=== PATIENT | male | born 1950 | race Caucasian/White ===

== ENCOUNTER 2017-03-11 09:07 | Inpatient (IN) ==
[2017-03-11] MEDS ORDERED: ZOFRAN IV ONE (09:24)
[2017-03-11] MEDS ORDERED: DILAUDID IV ONE ×2 (09:24→11:27)
--- NOTE | 2017-03-11 09:30 | PROVIDER DOCUMENTATION ---
HPI-General Adult - General Chief Complaint: Fall Stated Complaint: fall Time Seen by Provider: 03/11/17 09:14 Source: patient, EMS Allergies/Adverse Reactions: Patient Allergies Allergy/AdvReac Type Severity Reaction Status Date / Time cephalexin monohydrate * Allergy Unknown Verified 03/11/17 09:35 [From Keflex] Home Medications: Home Medication List Medication Instructions Recorded Confirmed Last Taken Type Alprazolam [Xanax] 1 mg PO TID 03/11/17 03/11/17 03/10/17 History Bumetanide [Bumex] 2 mg PO BID 03/11/17 03/11/17 03/10/17 History Ezetimibe [Zetia] 10 mg PO QHS 03/11/17 03/11/17 03/10/17 History Folic Acid 1 mg PO DAILY 03/11/17 03/11/17 03/10/17 History Lactulose [Lactulose] 15 mg PO TID 03/11/17 03/11/17 03/10/17 History Nadolol 20 mg PO DAILY 03/11/17 03/11/17 03/10/17 History Nitroglycerin 0.4 mg SL PRN PRN 03/11/17 03/11/17 03/10/17 History Potassium 20 mg PO TID 03/11/17 03/11/17 03/10/17 History Ranitidine HCl [Zantac 75] 150 mg PO BID 03/11/17 03/11/17 03/10/17 History - History of Present Illness -Gen Adult Nature of Presenting Problems: Pt is a 66 y/o W male c chief complaint of R thigh pain radiating to his R knee after he fell in the shower last night. Pt states his son came over to the house and assisted him to bed but he was unable to sleep all night due to the severe pain in his R leg. Pt has been unable to walk on the leg. He denies LOC or head injury c the fall, however his speech is slurred and he is slow to respond on arrival. Pt has a h/o liver failure, CHF, COPD, and HTN. He also has a h/o orthopedic surgery to his R femur and states after the surgery his R leg was shorter than his left leg. He was brought to the hospital by EMS. Review of Systems - Adult - REVIEW OF SYSTEMS - ADULT Constitutional: reports: no symptoms reported. denies: chills, fatique Eyes: reports: no symptoms reported. denies: discharge, blurred vision, double vision Ears, Nose, Mouth & Throat: reports: no symptoms reported. denies: hearing loss , nose pain Cardiovascular: reports: no symptoms reported. denies: chest pain, orthopnea Respiratory: reports: no symptoms reported. denies: cough, shortness of breath Gastrointestinal: reports: no symptoms reported. denies: abdominal pain, nausea Genitourinary: reports: no symptoms reported. denies: dysuria, hematuria Musculoskeletal: reports: bone pain, joint pain, joint swelling Integumentary: reports: no symptoms reported. denies: itching, rash Neurological: reports: no symptoms reported. denies: numbness, paresthesia Psychiatric: reports: no symptoms reported. denies: anxiety, emotional problems Endocrine: reports: no symptoms reported. denies: cold intolerance, heat intolerance Hematologic/Lymphatic: reports: no symptoms reported. denies: blood clots, low blood count Allergic/Immunologic: reports: no symptoms reported. denies: allergic reactions , food allergy All Other Systems: Reviewed and Negative Past History - Adult - PAST MEDICAL HISTORY-ADULT Review of Records: reports: Old Records Reviewed, Nursing Assessment Review, Medications Reviewed, Social history reviewed & non-contributory. Major Childhood Illnesses: reports: denies history Cardiovascular: reports: CAD, CHF, HTN, hyperlipidemia, PVD Respiratory: reports: COPD Gastrointestinal: reports: liver disease Obstetrical/Gynecological: reports: denies history Genitourinary: reports: denies history Musculoskeletal: reports: chronic pain, other fractures, orthopedic injury Neurological: reports: denies history Endocrine/Immune: reports: denies history Other Conditions: reports: denies history - IMMUNIZATION STATUS Childhood Immunizations: See Nurse Assessment Flu Vaccine: See Nurse Assessment - FAMILY HISTORY Family History: reviewed, not pertinent - SOCIAL HISTORY Smoking: denies Substance Use: none/never Alcohol Use Frequency: never Living Situation: family Physical Exam-General - PHYSICAL EXAM-ADULT Initial Vital Signs Reviewed: Yes - CONSTITUTIONAL General Appearance: mild distress, obese, slow to respond - EYES Eyes: PERRL/EOMI, pink conjunctivae - HEAD, EARS, NOSE, MOUTH & THROAT HENMT: normocephalic/atraumatic, moist mucous membranes, normal ENT inspection - NECK Neck: normal inspection - RESPIRATORY Respiratory: chest non-tender, no pleuratic chest pain, no respiratory distress , no accessory muscle use, wheezing (mild bilat). negative: respiratory distress, decreased breath sounds, decreased rate, increased rate - CARDIOVASCULAR Cardiovascular: normal peripheral pulses, regular rate, rhythm - GASTROINTESTINAL (ABDOMEN) Abdominal Exam: normal bowel sounds, non tender, soft - LYMPHATIC Lymphatic: no adenopathy - MUSCULOSKELETAL Back Exam: normal inspection, no CVA tenderness, no vertebral tenderness Extremity: tenderness (tenderness to palpation of R midshaft thigh and entire knee) - SKIN Integumentary: normal color, normal turgor, warm/dry - NEUROLOGIC Neurologic: grossly normal, no motor/sensory deficits - PSYCHIATRIC Psych/Mental Status: normal mood/affect, normal thought content, normal thought process, oriented x 3 Progress - PLAN OF CARE/RESULTS Progress/Plan/Lab Results: Vital Signs - 8 hr 03/11/17 09:13 Temperature 98.3 F Pulse Rate 77 Respiratory Rate 22 Blood Pressure 141/84 O2 Sat by Pulse Oximetry 95 Orders Category Date Time Status Saline Loc NOW Care 03/11/17 09:21 Active CHEST-PORTABLE [RAD] Stat Exams 03/11/17 09:21 Ordered FEMUR MIN 2 VIEWS RIGHT [RAD] Stat Exams 03/11/17 09:22 Ordered HEAD W/O CONTRAST [CT] Stat Exams 03/11/17 09:22 Ordered KNEE 3 VIEWS RIGHT [RAD] Stat Exams 03/11/17 09:22 Ordered XRAY HIP UNILATERAL RT [RAD] Stat Exams 03/11/17 09:22 Ordered ALCOHOL BLOOD Stat Lab 03/11/17 09:21 Uncollected AMMONIA [CHEM] Stat Lab 03/11/17 09:23 Uncollected CBC WITH ELECTRONIC DIFF [HEME] Stat Lab 03/11/17 09:21 Uncollected CK PROFILE [SP CHEM] Stat Lab 03/11/17 09:21 Uncollected COMPREHENSIVE METABOLIC PANEL [CHEM] Stat Lab 03/11/17 09:21 Uncollected PROTIME WITH INR [COAG] Stat Lab 03/11/17 09:21 Uncollected PTT [COAG] Stat Lab 03/11/17 09:21 Uncollected TROPONIN T Stat Lab 03/11/17 09:21 Uncollected URINALYSIS W/POSS RFLX CULT-1 [URINALYSIS] Stat Lab 03/11/17 09:21 Uncollected URINE DRUG SCREEN Stat Lab 03/11/17 09:21 Uncollected Hydromorphone [Dilaudid] Med 03/11/17 09:24 Once 1 mg IV NOW ONE Ondansetron [Zofran] Med 03/11/17 09:24 Once 4 mg IV NOW ONE Pulse Oximetry Stat Oth 03/11/17 09:21 Active EKG [EKG] Stat Ther 03/11/17 09:21 Ordered Result Diagrams: 03/11/17 09:21 03/11/17 09:21 - REASSESSMENT Reassessment #1 Time Reassessed: 13:27 (Contacted Dr. Leon c results from Dr. Sapp on CT knee. He would like the CT transferred into the [facility] system so he can access them and determine if the fx extends into the joint space. ) Reassessment #2 Time Reassessed: 14:08 (Dr. Leon reviewed CT scan and called back. He stated that he believes this is an osteochondroma that has broke off from the medial condyle of the femur. He recommends immobilization and non-weight bearing until pt can be seen in clinic. I discussed the plan of care c pt and his daughter at bedside. Pt is concerned because he has significant balance issues and no support at home. Daughter stated that the pt lives at home c his elderly sick and she is concerned he will fall if using crutches. Discussed c Dr. Julien ( ER MD) who recommended admitting pt to the Hospitalist for pain management c plan to have ortho see pt in morning. Pt and family agree c this plan. ) Reassessment #3 Time Reassessed: 14:19 (Hospitalist ANTONIO called back. She will relay message to Dr. Rubalcava (Hospitalist)) - XRAY 1 XRAY: Right XRAY Study: Pelvis, Femur, Knee Impression: Abnormal (PROBABLE ACUTE FX OF MEDIAL MARGIN OF MEDIAL FEMORAL CONDYLE - DR. SAPP) - CT/MRI 1 CT Study: Head Impression: Abnormal (NO EVIDENCE OF INJURY; R MASTOID EFFUSION NOTED - DR. SAPP) - CONSULTS/PCP/HOSPITALIST Notification #1 *Consult/PCP/Hospitalist*: Dr. Shaun Leon (Ortho) Time Discussed: 11:33 (Requested CT scan of knee to further evluate the atypical fx) #2 Consult: Dr. Rubalcava (Hospitalist) Time Discussed: 14:30 Reason/Comments: will admit and write orders. Departure - Departure Time of Disposition Decision: 11:03 DIAGNOSIS: Hyponatremia, Increased ammonia level Femoral condyle fracture Qualifiers: Encounter type: initial encounter Fracture type: closed Fracture alignment: nondisplaced Laterality: right Qualified Code(s): S72.414A - Nondisplaced unspecified condyle fracture of lower end of right femur, initial encounter for closed fracture Disposition: ADMITTED INPATIENT 09 Certified Medical Emergency: Emergent Condition: Stable Referrals and Follow-Ups: Alex Stuart [Primary Care Provider] - - Critical Care Note This patient required my direct & personal management of CC.: No Attestation - Physician/ LUCI Attestation Patient care was provided by Advanced Practice Provider:: Yes Advanced Practice Provider:: Gaetano Rios Advanced Practice Provider documentation review:: The Mid-level provider documentation, treatment plan and medical decision making was reviewed by the physician who agrees with all treatment and medical decision making by the MLP.
[2017-03-11 09:31] LABS: MANUAL DIFF NEEDED? NO
[2017-03-11 09:46] LABS: INR 1.15; PROTIME 12.2 Seconds (9.2-11.7); PTT 29.7 Seconds (22.0-36.0)
[2017-03-11 09:57] LABS: AGAP 10; ALBUMIN 3.1 g/dL (3.5-5.0); ALKALINE PHOSPHATASE 107 U/L (32-122); BUN 7 mg/dL (8-22); CALCIUM 8.7 mg/dL (8.8-10.2); CHLORIDE 91 mmol/L (98-107); CK PROFILE 102 U/L (24-204); COSMO 261; GOT 20 U/L (10-34); GPT 9 U/L (10-44); POTASSIUM 3.2 mmol/L (3.5-5.1); SODIUM 130 mmol/L (136-145); TCO2 29 mmol/L (25-35); TOTAL BILIRUBIN 2.34 mg/dL (0.20-1.00); TOTAL PROTEIN 7.9 g/dL (6.3-8.3)
--- NOTE | 2017-03-11 09:59 | ED EKG INTERP ---
This chart was entered by Ghanshyam Kearney Scribe, acting as scribe for Nishant Julien MD. EKG Interpretation - EKG Time of EKG reading by physician:: 09:12 EKG Read and Signed by:: Nishant Julien Rate: 77 Rhythm: NSR QRS: normal PA Interval: normal ST Wave: normal This chart was documented by the indicated scribe, (Ghanshyam Kearney Scribe) and accurately reflects the services I performed and decisions made by me, Nishant Julien MD, as attested by the provider's signature.
[2017-03-11 11:01] LABS: BASO% 0.7 % (0.0-0.8); EOS# 0.12 X1000 (0.0-0.7); EOS% 1.1 % (0.0-10.0); HEMATOCRIT 42.2 % (42.0-52.0); LYMPH# 2.46 X1000 (1.2-3.4); MCH 33.4 PG (27-31); MCHC 35.5 g/dL (33-37); MONO% 9.9 % (1.7-9.3); MPV 9.4 FL (7.4-10.4); NEUT% 66.3 % (42.2-75.2); PLT 65 X1000 (130-400); RBC 4.49 XMIL (4.7-6.1)
--- NOTE | 2017-03-11 11:13 | Diag Imaging Result Document ---
PROCEDURE NAME: KNEE 3 VIEWS RIGHT - 03/11/2017 RIGHT KNEE 3 VIEWS: No comparison exam. FINDINGS: The bones appear osteopenic. There is deformity of the medial margin of the medial femoral condyle. This is suspicious for acute fracture, although the possibility that this represents a old fracture deformity cannot be entirely excluded. There is mild smooth deformity of the distal medial margin of the metaphysis of the proximal tibia which is likely longstanding. There is no dislocation seen. IMPRESSION: Probable acute fracture of medial margin of medial femoral condyle. The possibility that this represents an old fracture deformity cannot be entirely excluded. [facility]
--- NOTE | 2017-03-11 11:16 | Diag Imaging Result Document ---
PROCEDURE NAME: HEAD W/O CONTRAST - 03/11/2017 CT HEAD WITHOUT CONTRAST: TECHNIQUE: A dose reduction protocol was used. No comparison exam. FINDINGS: There are some generalized atrophic changes. There are chronic-appearing microvascular ischemic changes. There is no indication of recent infarct, although acute infarcts may not be immediately visible. There is no evidence of intracranial hemorrhage, mass effect, or midline shift. There is no skull fracture. There is right mastoid effusion noted. IMPRESSION: 1. Atrophic changes and chronic microvascular ischemic changes. 2. No visible acute intracranial abnormality. No evidence of intracranial injury. 3. There is right mastoid effusion noted.
--- NOTE | 2017-03-11 11:17 | Diag Imaging Result Document ---
PROCEDURE NAME: FEMUR MIN 2 VIEWS RIGHT - 03/11/2017 RIGHT FEMUR 4 VIEWS: FINDINGS: There is old fracture deformity at the proximal femur with metallic orthopedic fixation hardware. There is no acute fracture identified. The distal femur at the knee is evaluated on the right knee exam, rather than this exam. The bones appear osteopenic. There are severe degenerative changes at the right hip. There are atherosclerotic calcifications noted. IMPRESSION: No evidence of acute fracture above the knee. Please see the right knee report for evaluation of the distal femur at the knee. [facility]
[2017-03-11 11:29] LABS: URINE CULTURE NEEDED? NO; URINE MICRO REVIEW NEEDED? NO; URINE SOURCE CLEAN CATCH
--- NOTE | 2017-03-11 11:29 | Diag Imaging Result Document ---
PROCEDURE NAME: PELVIS - 03/11/2017 AP PELVIS: Compared 03/11/2017. FINDINGS: There is old fracture deformity of the proximal right femur with metallic fixation hardware. There are severe degenerative changes of the right hip. There is no acute fracture identified. IMPRESSION: No evidence of acute fracture.
[2017-03-11 11:34] LABS: BILIRUBIN URINE NEGATIVE (NEGATIVE); BLOOD URINE TRACE (NEGATIVE); COLOR ORANGE; GLUCOSE URINE NEGATIVE (NEGATIVE); LEUKOCYTES URINE NEGATIVE (NEGATIVE); NITRITE URINE NEGATIVE (NEGATIVE); PROTEIN URINE TRACE mg/dL (NEGATIVE); SP GRAVITY URINE 1.017; TURBIDITY URINE CLEAR (CLEAR); UR EPITHELIAL CELLS <10 /HPF (<10); URINE BACTERIA NEGATIVE /HPF; URINE RBC <10 /HPF (<10); URINE WBC <10 /HPF (<10); UROBILINOGEN URINE 2 mg/dL (NORMAL)
[2017-03-11 11:50] LABS: UR AMPHETAMINES QUAL NONE DETECTED (NONE DETECT); UR BARBITUATES QUAL NONE DETECTED (NONE DETECT); UR BENZODIAZEPIN QUAL PRESUMPTIVE POSITIVE (NONE DETECT); UR CANNABINOIDS QUAL PRESUMPTIVE POSITIVE (NONE DETECT); UR COCAINE QUAL NONE DETECTED (NONE DETECT); UR METHADONE QUAL NONE DETECTED (NONE DETECT); UR OPIATES QUAL NONE DETECTED (NONE DETECT); UR OXYCODONE QUAL NONE DETECTED (NONE DETECT); UR PCP QUAL NONE DETECTED (NONE DETECT)
[2017-03-11 14:51] LABS: HEMOGLOBIN A1C 5.7 % (4.8-6.0)
--- NOTE | 2017-03-11 17:20 | Diag Imaging Result Document ---
PROCEDURE NAME: CHEST-1 VIEW - 03/11/2017 AP SUPINE CHEST: FINDINGS: No comparison exam. Heart size appears within normal limits. The lungs are mildly overexposed, but appear grossly clear. There is no substantial pleural effusion or pneumothorax identified. IMPRESSION: No evidence of acute disease.
[2017-03-11] MEDS ORDERED: NITROGLYCERIN SL PRN (17:26)
[2017-03-11] MEDS ORDERED: LACTULOSE PO SCH (17:26)
[2017-03-11] MEDS ORDERED: POTASSIUM 20 MG PO SCH (17:26)
[2017-03-11] MEDS ORDERED: DUONEB (A & A) INH PRN (17:26)
[2017-03-11] MEDS: ULTRAM PO PRN ×2 (17:55→23:39)
--- NOTE | 2017-03-11 17:55 | Diag Imaging Result Document ---
PROCEDURE NAME: CHUY LOWER W/O CONTRAST - 03/11/2017 CT RIGHT KNEE WITHOUT CONTRAST: FINDINGS: A dose reduction protocol was used. Axial, coronal and sagittal images are obtained. The bones appear osteopenic. There is an acute-appearing fracture of the medial femoral condyle, most conspicuous along the anterior medial margin of the condyle. The main medial fragment is medially displaced up to approximately 1.3 cm. The fracture extends mildly across the midline near the lateral margin of the intercondylar notch. There is mild deformity of the distal medial margin of the medial tibial plateau. There is no discrete acute fracture identified at this location, and this may be longstanding. The patella appears mildly laterally displaced and rotated. There is no dislocation identified. IMPRESSION: 1. Acute fracture of medial femoral condyle as described. 2. Apparent osteopenia or osteoporosis.
[2017-03-11] MEDS ORDERED: KLOR-CON PO ONE (18:28)
[2017-03-11] MEDS ORDERED: SODIUM CHLORIDE 0.9% INJ SCH (18:45)
--- NOTE | 2017-03-11 19:22 | HISTORY AND PHYSICAL ---
PRIMARY CARE PROVIDER: Dr. Stuart is located in [place]. CHIEF COMPLAINT: He fell and hurt his right knee. HISTORY OF PRESENT ILLNESS: Mr. Zonia Rondon is a ill-appearing 66-year-old male with a history of cirrhosis, heart failure, COPD who states that around 7:15 last night his foot slipped while he was in the shower and he fell on his right knee. He denies hitting his head. Imaging revealed that he has a right medial femoral condyle fracture. Dr. pSringer with orthopedic surgery says that this is not a surgical repair essentially will need nonweightbearing, physical therapy and to follow up in clinic. Other labs revealed that he has elevated ammonia level with mild signs and symptoms of hepatic encephalopathy which is likely chronic in nature. He has elevated white blood cell count. He is afebrile but will go ahead and do blood cultures. Follow up with a chest x-ray to rule out any infectious source. He is also noted to have mildly low sodium level. Will admit to the medical floor. Consult physical therapy. Consult orthopedic surgery. Continue with lactulose and follow up with another ammonia level for in the morning. PAST MEDICAL HISTORY: Liver failure, congestive heart failure, COPD, hypertension, anxiety, GERD, hyperlipidemia, coronary artery disease, peripheral vascular disease and hemorrhoid pain. SURGICAL HISTORY: Had pins placed in the right leg and appendectomy and cardiac stent in 2002. SOCIAL HISTORY: He quit smoking in 2002 but also smoked 2 packs per day for 30 years. In 1972 he quit drinking but prior to that he had drank 6 quarts of beer Paps G-volution per week. He states that he smokes marijuana 1 joint every day, he lives with his of 45 years. FAMILY HISTORY: Noncontributory but states that he does not know any family history. REVIEW OF SYSTEMS: Fourteen point review of systems were complete and all were negative except for those mentioned above HPI. ALLERGIES: Cephalexin, monohydrate. HOME MEDICATIONS: Xanax 1 mg p.o. 3 times a day, Bumex 2 mg p.o. twice daily, Zetia 10 mg p.o. nightly, folic acid 1 mg p.o. daily, lactulose 50 mg p.o. 3 times a day, nadolol 20 mg p.o. daily, nitroglycerin 0.4 sublingual p.r.n., potassium 20 mg p.o. 3 times a day and Zantac 150 mg p.o. twice a day. LABORATORY DATA: White blood cells 11,000, hemoglobin 15, hematocrit 42, platelet count 65,000. INR 1.15, sodium 130, potassium 3.2, BUN 7, Creatinine 1.0, glucose 137, hemoglobin A1c is 5.7, bilirubin is 2.34, AST 20, ALT 9, ammonia level 72, CK 102, troponin less than 0.01, albumin 3.1. Urinalysis trace protein, trace blood, 2 urobilinogen, urine drug screen positive for benzodiazepines and positive for cannabinoids. Alcohol negative. IMAGING: Lower extremity CT has been performed and preliminary report shows acute fracture of the medal femoral condyle, head without contrast shows no evidence of injury, it also showed right mastoid effusion. Chest x-ray no notes existed yet. Femoral x-ray, no acute fracture, pelvic x-ray no acute findings and then the right knee x-ray showed a probable acute fracture of the medial margin of the medial femoral condyle. PHYSICAL EXAMINATION: VITAL SIGNS: Temperature 98.3 degrees, heart rate 67, respiratory rate 18, blood pressure 141/61, O2 saturation 95% on room air, 6 foot 0 inch tall, 270 pounds, BMI 36.6. GENERAL: Mr. Zonia Rondon is a 66-year-old ill-appearing male who is in no acute distress, he is very slow speech and slow to answer questions but is otherwise oriented and is able answer questions appropriately. HEENT: Atraumatic, normocephalic. Pupils are equal, reactive. Extraocular movements intact. Mucous membranes are moist. NECK: No JVD or carotid bruits noted. CARDIOVASCULAR: S1, S2. Regular rate and rhythm. No rubs, gallops, or murmurs. PULMONARY: Some mild expiratory wheezes mid upper lobe bilaterally decreased in the bases. No accessory muscle use or work of breathing noted. GI: Soft, nontender, nondistended, positive bowel sounds x4 and he is obese. EXTREMITIES: Trace edema noted in the lower extremities. There is some discoloration I guess from the peripheral vascular disease. He had +1 to +2 dorsalis pedal pulses, +2 radial pulses. SKIN: Warm, dry, intact. NEUROLOGIC: A and O x4. Decreased range of motion in the right leg secondary to knee injury but otherwise moves all other extremities equally. Tongue was midline. Pupils are equal. He has slow speech and somewhat dysarthric but completely oriented x4. ASSESSMENT/PLAN: 1. Fall with a new right medial femoral condyle fracture. Will likely only need physical therapy but will have no weightbearing, will go ahead and do a full consult from orthopedic surgery and order physical therapy. 2. Hepatic encephalopathy is likely chronic in nature. Ammonia level is elevated, sodium down, will go ahead and continue his lactulose, repeat an ammonia level for in the morning. 3. Cirrhosis of the liver secondary to history of alcohol abuse but has been quit since 1972, will continue lactulose. 4. Chronic obstructive pulmonary disease no exacerbation noted. Will do p.r.n. nebs as needed. 5. Congestive heart failure. No echocardiogram here recorded, this is just by her report. 6. Anxiety. Continue home medications. 7. Gastroesophageal reflux disease. Continue home medications. 8. Peripheral vascular disease. 9. Coronary artery disease . 10. Marijuana abuse cessation discussed. 11. Deep venous thrombosis prophylaxis will be SCDs. Dictated by ANTONIO Thomas for Kristy Rubalcava MD cc: ANTONIO Thomas MD Dr. Hall
[2017-03-11] MEDS: XANAX PO SCH (20:23)
[2017-03-11] MEDS: LACTULOSE PO SCH (20:23)
[2017-03-11] MEDS: ZETIA PO SCH (20:23)
[2017-03-11] MEDS: ZOFRAN IV PRN (20:23)
[2017-03-11] MEDS: BUMEX PO SCH (20:23)
--- NOTE | 2017-03-11 20:39 | CONSULTATION ---
DATE OF CONSULTATION: 03/11/2017 CHIEF COMPLAINT: Right knee pain. HISTORY: The patient is a 66-year-old pleasant male who presented to the emergency room with a history of cirrhosis, heart failure, and COPD, after he sustained a fall while in the shower and fell onto his right knee. He denied hitting his head or pain in any other extremities. Orthopedics was asked to see him in consultation in regards to right knee pain and a knee fracture. He describes the pain as being in his right knee without radicular symptoms. He claims to have difficulty with placing weight on this but has not tried very much since his fall. PAST MEDICAL HISTORY: Liver failure, congestive heart failure, COPD, hypertension, anxiety, GERD, hyperlipidemia, coronary artery disease, peripheral vascular disease, and hemorrhoid pain. 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 SOCIAL HISTORY: He did quit smoking in 2002 but smoked 2 packs a day for approximately 30 years. In 1972 he quit drinking but drank 6 quarts of beer per week. He does smoke marijuana on a daily basis. REVIEW OF SYSTEMS: A 14-point review of systems which was obtained was negative except for as above. ALLERGIES: Cephalexin and monohydrate. MEDICATIONS: Please see the chart for his home medications. LABORATORY DATA: His white blood cell count is 11,000, hemoglobin 15. Creatinine is 1.0. IMAGING: There is an x-ray of the right knee that was reviewed that shows a medial sided fracture. There is significant osteoporosis noted within the bones without dislocation. Also, a CT scan was reviewed that shows a medial sided fracture without intraarticular involvement. There looks to be a possible lateral condyle involvement, however, there is no displacement or fracture line noted except for within the cortex at the joint line, but everything looks to be well positioned. PHYSICAL EXAMINATION: Vital signs: His vital signs are stable. General: He is alert and oriented x3 in no acute distress. HEENT: Pupils equal, round, reactive to light and accommodation. Extraocular movements are intact. No blood in the nares. Head is normocephalic. Neck: Trachea is midline and supple. Cardiac: There is a brisk capillary refill in peripheral extremities. Respiratory: There is normal aeration noted. Neurologic: Cranial nerves II through XII are grossly intact. No focal deficits. Sensation is intact distally in all distal dermatomal patterns. Musculoskeletal: Examination of the right knee does show significant effusion, muscle hematoma or lipo hematoma in nature. There is pain with range of motion due to this effusion. His calf is soft and nontender. He is in a brace. No open wounds are noted. ASSESSMENT: 1. Right-sided extraarticular medial condyle fracture, possible fracture of osteochondroma. 2. Hepatic encephalopathy. 3. Cirrhosis of the liver due to history of alcohol abuse. 4. Chronic obstructive pulmonary disease due to history of tobacco abuse. 5. Congestive heart failure. 6. Peripheral vascular disease. 7. Coronary artery disease. 8. Anxiety. 9. Gastroesophageal reflux disease. PLAN: At this time, I had a long discussion with the patient on treatment options. I do not focally identify an intraarticular fracture fragment, however, he does have an effusion noted on the knee. At this time, I would recommend nonweightbearing to the right lower extremity and to see if he is able to weight bear to see if we can avoid surgical intervention at this time. The fracture could be from a fracture of what looks to be an osteochondroma on the medial side of the knee which is where he is painful, however, there is a slight disruption of the cortex on the lateral side that could be intraarticular in nature. He has significant osteoporosis in his knee but, due to his significant medical history and the less severity of the fracture, I would recommend bracing at this time and we will see how he does. Will continue to follow him. cc: Gaetano Leon MD
[2017-03-11] MEDS ORDERED: ZANTAC PO SCH (21:00)
[2017-03-12] MEDS: ZOFRAN IV PRN ×3 (03:58→19:51)
[2017-03-12] MEDS ORDERED: MORPHINE IV ONE (04:43)
[2017-03-12 05:50] LABS: MANUAL DIFF NEEDED? NO
[2017-03-12 05:58] LABS: BASO% 0.3 % (0.0-0.8); EOS# 0.13 X1000 (0.0-0.7); EOS% 1.2 % (0.0-10.0); HEMATOCRIT 40.6 % (42.0-52.0); HEMOGLOBIN 14.5 g/dL (14.0-18.0); IMM GRAN# 0.04 X1000 (0.0-0.04); IMM GRAN% 0.4 % (0.0-0.5); LYMPH# 2.12 X1000 (1.2-3.4); LYMPH% 19.4 % (20.5-51.1); MCH 33.5 PG (27-31); MCHC 35.7 g/dL (33-37); MCV 93.8 FL (81-99); MONO# 1.25 X1000 (0.11-0.59); MONO% 11.4 % (1.7-9.3); MPV 8.9 FL (7.4-10.4); NEUT% 67.3 % (42.2-75.2); PLT 69 X1000 (130-400); RBC 4.33 XMIL (4.7-6.1)
[2017-03-12 06:05] LABS: INR 1.15; PROTIME 12.2 Seconds (9.2-11.7); PTT 31.4 Seconds (22.0-36.0)
[2017-03-12 06:11] LABS: AGAP 12; ALKALINE PHOSPHATASE 103 U/L (32-122); BUN 8 mg/dL (8-22); CALCIUM 8.5 mg/dL (8.8-10.2); CHLORIDE 93 mmol/L (98-107); COSMO 272; GOT 19 U/L (10-34); GPT 8 U/L (10-44); MAGNESIUM 1.8 mg/dL (1.5-2.7); POTASSIUM 3.7 mmol/L (3.5-5.1); SODIUM 136 mmol/L (136-145); TCO2 31 mmol/L (25-35); TOTAL BILIRUBIN 3.67 mg/dL (0.20-1.00); TOTAL PROTEIN 7.8 g/dL (6.3-8.3)
[2017-03-12] MEDS: ULTRAM PO PRN ×3 (06:28→19:51)
[2017-03-12] MEDS ORDERED: PROTONIX IV SCH (07:00)
[2017-03-12] MEDS: CORGARD PO SCH (08:45)
[2017-03-12] MEDS: XANAX PO SCH ×3 (08:45→17:59)
[2017-03-12] MEDS: BUMEX PO SCH ×2 (08:45→21:37)
[2017-03-12] MEDS: XIFAXAN PO SCH ×2 (08:45→21:37)
[2017-03-12] MEDS: LACTULOSE PO SCH ×3 (08:46→18:00)
[2017-03-12] MEDS: FOLIC ACID PO SCH (08:46)
[2017-03-12] MEDS ORDERED: VITAMIN D PO SCH (09:00)
--- NOTE | 2017-03-12 09:21 | Diag Imaging Result Document ---
PROCEDURE NAME: THORAX/ABDOMEN/PELVIS W/O CONT - 03/11/2017 CT OF THE CHEST WITHOUT CONTRAST: Clarity dose-reduction software was employed. FINDINGS: There is COPD. There is some slight increase in his interstitial markings peripherally. There are no previous studies. There is bilateral gynecomastia. There is a fair amount of retained fluid present in the esophagus. There appears to be some high density material within the esophagus as well which may be oral contrast material although no history of the patient having received contrast is available. There is similar-appearing density in the dependent portions of the stomach. Extensive coronary atherosclerotic calcification is present. There are some calcified nodes in the tracheobronchial and hilar regions on the left. There are paraesophageal varices seen in the inferior portion of the mediastinum. IMPRESSION: COPD. Interstitial edema versus fibrosis. Retained fluid in the esophagus which may be due to reflux or stenosis of the esophagogastric junction region. CT UROGRAM WITHOUT CONTRAST: FINDINGS: There is cirrhosis. The spleen is enlarged measuring over 15 cm in AP dimension and 15.5 cm in superior inferior dimension. There are multiple subcentimeter calcified gallstones. There are a few scattered granulomata in the liver and spleen. There is no evidence of hydronephrosis or nephrolithiasis. The possibility of portal vein thrombosis or cavernous transformation cannot be excluded on this noncontrast study. There are gastric varices. There has been previous internal fixation of the right femur. There is extensive atherosclerotic calcification. IMPRESSION: Cirrhosis with probable portal hypertension. Varices. Cholelithiasis.
--- NOTE | 2017-03-12 09:54 | EKG Report ---
Test Performed on : 03/11/2017 09:12:49 AM Test Reason : ED. Canc in error Blood Pressure : / mmHG Vent. Rate : 077 BPM Atrial Rate : 077 BPM P-R Int : 156 ms QRS Dur : 092 ms QT Int : 414 ms P-R-T Axes : 049 064 051 degrees QTc Int : 468 ms Normal sinus rhythm. Normal ECG No previous ECGs available Unconfirmed Result
--- NOTE | 2017-03-12 11:37 | Diag Imaging Result Document ---
PROCEDURE NAME: MRI LOW EXTREMTY W/O CON-RIGHT - 03/12/2017 MRI OF THE RIGHT KNEE: FINDINGS: There is an effusion in the joint space as well as extensive abnormal fluid collection extending superiorly deep to the quadriceps tendon, some of which may be in the substance of the muscle. There is what appears to be a bone infarct in the proximal tibia. There is edema and apparent fracture in the supracondylar portion of the distal femur medially. This was also demonstrated on CT on 03/11/2017. The possibility of a pathological fracture cannot be excluded. The fracture appeared to pass through the intercondylar portion of the distal femur as well as the epicondyle medially. The collateral ligaments appear to be intact. The menisci and cruciate ligaments appear to be intact. There are no signal abnormalities in the fibula or patella. There is a nodular area of decreased T1 and increased T2-weighted signal intensity in the medullary cavity of the distal femoral shaft. This is nonspecific in appearance. IMPRESSION: Fracture of the medial femoral epicondyle with hemarthrosis and apparent edema and/or hematoma in the quadriceps muscles distally. 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 The possibility of the fracture being pathologic cannot be excluded and further evaluation with contrast may be desirable.
--- NOTE | 2017-03-12 16:58 | PROGRESS NOTE ---
DATE: 03/12/2017 SUBJECTIVE: The patient is awake and alert. He complains of pain in his right knee. He states that he has been vomiting today and has not been able to keep anything down. He denies having any abdominal pain. OBJECTIVE: Vital Signs: Temperature 98.1 degrees, blood pressure 126/70, heart rate 88, respirations 20, O2 saturations 96% on room air. General: This is an elderly male who appears to be chronically ill lying in bed in no acute distress. Head: Normocephalic, atraumatic. Heart: S1, S2. Normal. Regular rate and rhythm. Lungs: Clear to auscultation bilaterally. Abdomen: Positive bowel sounds. Soft, nontender, nondistended. Extremities: No edema. No cyanosis. Neuro: The patient is alert and oriented x3. No focal neurologic deficits noted. LABS: White blood cell count 10, hemoglobin 14, hematocrit 40, platelets 69,000. INR 1.1. Sodium 136, potassium 3.7, chloride 93, CO2 31, BUN 8, creatinine 1, glucose 137, calcium 8.5, magnesium 1.8, total bilirubin 3.6, AST 19, ALT 8, ammonia 142, albumin 3. ASSESSMENT AND PLAN: 1. Fracture of the right medial femoral epicondyle with hemarthrosis. Management as per the orthopedic surgeon. 2. The patient with vomiting and fluid in the esophagus. The patient will remain NPO. GI has been consulted for further assistance. 3. Hepatic encephalopathy. The patient is normally on lactulose at home. He is currently NPO at this time. We may need to consider a lactulose retention enema. 4. History of gastric varices. Aware. 5. Alcoholic liver cirrhosis. Aware. 6. Chronic thrombocytopenia. Stable. 7. Hyperbilirubinemia. Will order a abdominal ultrasound. 8. Vitamin D deficiency. Continue on vitamin D2. 9. Anxiety disorder. Aware. 10. Gastrointestinal prophylaxis. Continue on Protonix IV q.12 hours. cc: Kristy Rubalcava MD
--- NOTE | 2017-03-12 17:53 | Diag Imaging Result Document ---
PROCEDURE NAME: US ABDOMEN-COMPLETE - 03/12/2017 ABDOMINAL ULTRASOUND': FINDINGS: The study is markedly suboptimal due to the patient's body habitus. There is very poor detail seen in the liver which does appear to be slightly hyperechoic. There is antegrade flow but somewhat diminished flow in the portal vein. The common bile duct measures 7 mm. There are stones in the gallbladder. There is no sonographic Allan sign. The spleen is enlarged measuring over 17 cm. The kidneys are without evidence of hydronephrosis or mass. There are no abnormal fluid collections. The aorta and inferior vena cava are normal where they are visible. The pancreas is obscured. IMPRESSION: 1. Probable cirrhosis and portal hypertension with splenomegaly. 2. The possibility of a distal common bile duct stone with mild biliary dilatation cannot be excluded. 3. Cholelithiasis.
[2017-03-12] MEDS: SODIUM CHLORIDE 0.9% INJ SCH (17:59)
[2017-03-12] MEDS: PROTONIX IV SCH (17:59)
--- NOTE | 2017-03-12 20:15 | CONSULTATION ---
DATE OF CONSULTATION: 03/12/2017 REFERRING PHYSICIAN: Kristy Rubalcava M.D. PRIMARY CARE PHYSICIAN: Alex Stuart M.D. CHIEF COMPLAINT: 1. Abnormal CT scan. 2. Nausea with vomiting. 3. Fluid in the esophagus on CT scan suggestive of possible distal esophageal obstruction. 4. Hepatic encephalopathy. 5. Cirrhosis. 6. Esophageal and gastric varices. 7. History of peptic ulcer disease. 8. Hyperbilirubinemia. HISTORY OF PRESENT ILLNESS: The patient is a chronically ill-appearing, 66-year -old white male who has multiple medical problems. On 03/11/2017, he slipped and fell in the shower and fractured his right knee. He has been evaluated by Dr. Leon from Orthopedic Surgery who states that surgery is not indicated at this time and plans medical management. As part of his admission evaluation, he was noted to have a markedly elevated ammonia level, hyperbilirubinemia and trace blood in his urine. His liver function tests were normal. Over the next 24 hours, he had episodes of nausea with vomiting. Abdominopelvic CT scan was performed for further evaluation of the abdominal pain and nausea with vomiting as he has documented cirrhosis. He was found to have fluid and high density material in his esophagus with air-fluid levels suggestive of retained fluid in the esophagus secondary to either reflux or stenosis at the esophagogastric junction. His liver was nodular consistent with cirrhosis. There were both esophageal and gastric varices present consistent with portal hypertension. He also had cholelithiasis present. Abdominal ultrasound was obtained earlier today and is remarkable for cirrhosis with portal hypertension and splenomegaly. He also has a common bile duct stone with mild biliary dilatation. We are asked to participate in his care. PAST MEDICAL HISTORY: Remarkable for 1. Liver failure. 2. Congestive heart failure. 3. COPD. 4. Hypertension. 5. Anxiety. 6. GERD. 7. Bleeding gastric ulcers. 8. Hyperlipidemia. 9. Coronary artery disease. 10. Peripheral vascular disease. 11. Hemorrhoids. 12. Central morbid obesity. PAST SURGICAL HISTORY: 1. Pins placed in the right lower extremity. 2. Appendectomy. 3. Cardiac stent. SOCIAL HISTORY: Remarkable in that he previously smoked 2 packs per day of cigarettes for about 30 years. Prior to 1972, he drank 6 quarts of beer per week. He continues to smoke at least 1 joint per day. He is and lives with his of 45 years. FAMILY HISTORY: Unknown. He reports no contact with his family. He denies a known history of cancer. REVIEW OF SYSTEMS: Remarkable for pain in his right knee. He is currently asking for morphine. MEDICATION ALLERGIES: Cephalexin. HOME MEDICATIONS: 1. Potassium. 2. Lactulose. 3. Zantac. 4. Zetia. 5. Nitroglycerin. 6. Bumex. 7. Xanax. 8. Folic acid. 9. Nadolol. LABORATORY: Currently, the patient has the following laboratory findings: His hemoglobin is 14.5 with hematocrit of 40.6 and white count of 10.94. He has 69,000 platelets. His PT is 12.2 with an INR of 1.15 and a PTT of 31.4. Sodium is 136, potassium 3.7, chloride 93, CO2 31, BUN 8, creatinine 1.0 with a glucose of 137. Calcium is 8.5, total bilirubin 3.67, AST 19, ALT 8, alkaline phosphatase 103, total protein 7.8, albumin 3.0. His ammonia level is up to 142. His magnesium is 1.8. His tox screen on admission is positive for benzodiazepines and cannabinoids. IMPRESSION: 1. Alcoholic and fatty liver as a cause of cirrhosis. 2. Nausea with vomiting. 3. Abnormal CT scan with retained fluid in the esophagogastric junction although the patient denies difficulty with oral intake. 4. History of peptic ulcer disease. 5. Hepatic encephalopathy. 6. Gastroesophageal reflux disease. 7. Common bile duct stone with mild biliary dilatation. 8. Portal hypertension with gastric and esophageal varices. 9. Cholelithiasis. RECOMMENDATION: 1. The patient would benefit from an upper endoscopy to further evaluate the abnormal CT scan. I will place the patient on the schedule in the next 1-2 days. 2. Because he may have a common bile duct stone, he may require an ERCP which I will discuss with Dr. Emerson Nava. 3. I agree with increasing the lactulose to 30 mL p.o. t.i.d. Although his ammonia is going up, clinically he is alert and oriented and able to answer questions appropriately. 4. Continue the Corgard as you are doing. 5. Continue Protonix 40 mg IV q.12 hours. 6. Continue rifaximin 550 mg p.o. b.i.d. 7. The patient has a history of peptic ulcer disease. Please monitor his hemoglobin serially. 8. Additional recommendations to follow based on his clinical course and endoscopic findings. cc: MD Norma Arredondo MD Katherine Takundwa, MD Robert Hall, MD MTDD
[2017-03-12] MEDS: ZETIA PO SCH (21:37)
[2017-03-13] MEDS: ZOFRAN IV PRN ×3 (00:01→09:07)
[2017-03-13] MEDS: ULTRAM PO PRN ×4 (02:42→22:20)
[2017-03-13 05:36] LABS: MANUAL DIFF NEEDED? NO
[2017-03-13 05:46] LABS: BASO% 0.5 % (0.0-0.8); EOS# 0.14 X1000 (0.0-0.7); EOS% 1.5 % (0.0-10.0); HEMATOCRIT 38.5 % (42.0-52.0); HEMOGLOBIN 13.7 g/dL (14.0-18.0); IMM GRAN# 0.03 X1000 (0.0-0.04); IMM GRAN% 0.3 % (0.0-0.5); LYMPH# 2.67 X1000 (1.2-3.4); MCH 33.3 PG (27-31); MCHC 35.6 g/dL (33-37); MCV 93.7 FL (81-99); MONO# 1.02 X1000 (0.11-0.59); MONO% 11.1 % (1.7-9.3); MPV 9.1 FL (7.4-10.4); NEUT% 57.6 % (42.2-75.2); PLT 68 X1000 (130-400); RBC 4.11 XMIL (4.7-6.1)
[2017-03-13] MEDS: PROTONIX IV SCH ×2 (06:03→18:45)
[2017-03-13 06:09] LABS: AGAP 11; ALKALINE PHOSPHATASE 96 U/L (32-122); BUN 10 mg/dL (8-22); CALCIUM 8.8 mg/dL (8.8-10.2); CHLORIDE 92 mmol/L (98-107); COSMO 268; GOT 18 U/L (10-34); GPT 7 U/L (10-44); POTASSIUM 3.2 mmol/L (3.5-5.1); SODIUM 134 mmol/L (136-145); TCO2 31 mmol/L (25-35); TOTAL PROTEIN 7.7 g/dL (6.3-8.3)
[2017-03-13] MEDS ORDERED: POTASSIUM CHLORIDE 60 MEQ in NS 500 ML IV ONE (07:39)
[2017-03-13] MEDS: BUMEX PO SCH ×2 (09:11→22:20)
[2017-03-13] MEDS: CORGARD PO SCH ×2 (09:11→13:52)
[2017-03-13] MEDS: XANAX PO SCH ×4 (09:12→22:47)
[2017-03-13] MEDS: FOLIC ACID PO SCH (09:12)
[2017-03-13] MEDS: XIFAXAN PO SCH ×2 (09:13→22:21)
[2017-03-13] MEDS ORDERED: NS 500 ML IV SCH (09:24)
[2017-03-13] MEDS: LACTULOSE PO SCH ×2 (10:47→13:51)
[2017-03-13] MEDS ORDERED: DIPRIVAN 1% ONE (12:24)
[2017-03-13] MEDS ORDERED: FENTANYL ONE (12:24)
[2017-03-13] MEDS ORDERED: XYLOCAINE-MPF 2% ONE (13:29)
[2017-03-13] MEDS ORDERED: ANESTHESIA PB SET 88 IN 5742 ONE (13:30)
[2017-03-13] MEDS ORDERED: QUELICIN (DOSE) ONE (13:30)
[2017-03-13] MEDS ORDERED: LR 1,000 ML ONE (13:30)
[2017-03-13] MEDS: CARAFATE LIQUID PO SCH ×2 (13:51→22:20)
--- NOTE | 2017-03-13 16:09 | PROGRESS NOTE ---
DATE: 03/13/2017 SUBJECTIVE: Today Mr. Rondon refers to be doing better. He actually has been slipping in and out while we are talking. OBJECTIVE: Vital signs: Blood pressure is 105/72, pulse of 79, respiration is 15, temperature is 97.6 degrees. General Exam: Mr. Rondon is a 66-year-old male, morbidly obese, with a BMI of 35.4. He is in bed. He does not seem to be in any distress. HEENT: Mucosa is pink and moist. Anicteric. Acyanotic. Neck: Supple. Chest: Clear. Cardiovascular: Regular rate and rhythm. Abdomen: Soft, distended. Seems to be some shifting dullness. Extremities: No pedal edema. The right lower extremity is actually immobilized in an orthopedic device. UX LEAD: Patient is alert and oriented. LABORATORY DATA: WBC is 9.22, hemoglobin is 13.7, platelet count of 65,000. Chemistry reviewed: Sodium is 134, potassium is 3.2, chloride 92. Ammonia is 86. Patient's vitamin D level is 5.0. ASSESSMENT: 1. Fracture of right medial femoral epicondyles status post fall. The patient has been evaluated by Orthopedic Surgery and is deemed nonsurgical. 2. Encephalopathy. Etiology is unclear. We think is multifactorial including hepatic encephalopathy. The patient is getting rifaximin and lactulose. We will continue with that. I think patient also has a genuine underlying obesity hypoventilation/sleep apnea. I will do an ABG on room air to see if he retains. We saw his bicarbonate is in the 30 range which is consistent with metabolic alkalosis, which I think it is subsequent to compensation from chronic respiratory acidosis. 3. Chronic thrombocytopenia due to cirrhosis. 4. Cirrhosis of the liver due to alcohol and fatty liver disease. 5. Vitamin D deficiency. 6. History of gastric varices. 7. Suspected common bile duct obstruction. However the enzymes are completely fine except the total bilirubin which is slightly elevated. 8. Severe vitamin D deficiency, we will replace that. For now, we will continue with the current medications. I will reduce the Xanax which the patient has since he continues actually to be slightly altered. We will continue with the Xifaxan and the lactulose. Nadolol has been increased to about 40. I understand patient also had gastric ulcers, so we will continue with the PPI, and Carafate has also been added to his medications. Of note, the patient's TSH is normal. cc: Song Peters MD MTDD
[2017-03-13] MEDS: SODIUM CHLORIDE 0.9% INJ SCH (18:45)
[2017-03-13] MEDS: ZETIA PO SCH (22:20)
--- NOTE | 2017-03-14 02:28 | OPERATIVE NOTE ---
PROCEDURE DATE: 03/13/2017 REFERRING PHYSICIAN: Dr. Kristy Rubalcava M.D. PRIMARY CARE PHYSICIAN: Dr. Alex Stuart M.D. INDICATION FOR PROCEDURE: 1. Abnormal CT scan, revealing esophagus with air-fluid level and fluid filled lumen. 2. Nausea with vomiting. 3. Cirrhosis, secondary to fatty liver, as well as remote alcohol. 4. Esophageal and gastric varices on CT scan. 5. History of peptic ulcer disease. PROCEDURE PERFORMED: Esophagogastroduodenoscopy. CONSENT: Informed consent was obtained from the patient prior to the procedure. The risks, benefits, and alternatives were discussed. MEDICATION: The patient received general anesthesia for airway protection. PERFORMING PHYSICIAN: Norma Mosher M.D. ASSISTANTS: 1. ST. J[facility] 2. Jonatan Madrigal RN. 3. Maureen Mccoy CRNA. 4. Hossein Rojas M.D. (anesthesia). COMPLICATIONS: There were no complications. ESTIMATED BLOOD LOSS: None. SPECIMENS REMOVED: None. Please note the patient is thrombocytopenic. FINDINGS: After sedation was achieved, the upper endoscope was inserted to the 2nd portion of the duodenum. The hypopharynx appeared ecchymotic. In the tubular esophagus, there was fluid and debris that was evacuated. There were large grade 4 varices in the esophagus, with luminal compromise. However, the scope passed easily into the gastric lumen. The GE junction was measured at 44 cm. There was a hiatal hernia from 44-46 cm. There was a large ulcer in the cardia of the stomach, immediately distal to the hiatal hernia sac. The base was whitish, with no stigmata of bleeding. Throughout the gastric lumen, there were erosive changes , consistent with erosive gastritis. In the mid body, there was a serpiginous ulcer with mass effect. In addition, there were 3 inflammatory polyps that ranged in size from 10-15 mm. They remained intact. On retroflexed view, there were scattered erosions as well as nonbleeding AVMs and gastric varices. On forward view, the pylorus appeared inflamed. There was obvious duodenitis in the 1st, 2nd, and 3rd portions of the duodenum. Upon withdrawal of the scope, there was a nutmeg appearance to the gastric mucosa, consistent with portal gastropathy. After the exam was complete , the lumen was decompressed and the scope was removed without incident. IMPRESSION: 1. Grade 4 esophageal varices. 2. Hiatal hernia. 3. Large gastric ulcer in the cardia. 4. Erosive gastritis. 5. Ulcer in the gastric body. 6. Three antral polyps. 7. Portal gastropathy. 8. Nonbleeding gastric arteriovenous malformations. 9. Mild duodenitis. RECOMMENDATION: 1. Continue Protonix 40 mg q.12 hours. 2. Add Carafate 1 g p.o. 4 times a day for 12 weeks. 3. Increase his nadolol from 20 to 40 mg per day. 4. Continue his regimen of Xifaxan and lactulose. 5. His abdominal ultrasound has a common bile duct stone visualized. I have discussed this with Dr. Nava for a possible ERCP. 6. Given the size and number of the ulcers, he would benefit from a repeat EGD in approximately 12 weeks under general anesthesia to reassess his healing of his ulcers. If his platelet count is appropriate at that time, it would be reasonable to take endoscopic biopsies of the mucosa. cc: MD Alex Connor MD Jeanette Keith, MD MTDD
[2017-03-14 04:13] LABS: ALLEN TEST YES; BE 8.1 mmoll (-3.0-3.0); BLOOD TYPE ARTERIAL; DRAW SITE R RADIAL; METHB 1.3 % (0.0-1.5); PO2(98.6) 88 mmHg (60-100); SAMPLE BLOOD; SAO2 98.2 % (95.0-100.0); THB 13.7 g/dL (11.5-17.4); pH(98.6) 7.39 (7.35-7.45)
[2017-03-14] MEDS: CARAFATE LIQUID PO SCH ×3 (04:13→13:55)
[2017-03-14 04:14] LABS: MODALITY CANNULA; PCO2(98.6) 58 mmHg (35-45)
[2017-03-14 05:32] LABS: MANUAL DIFF NEEDED? NO
[2017-03-14 05:49] LABS: BASO% 0.3 % (0.0-0.8); EOS# 0.13 X1000 (0.0-0.7); EOS% 2.1 % (0.0-10.0); HEMATOCRIT 34.3 % (42.0-52.0); HEMOGLOBIN 11.8 g/dL (14.0-18.0); LYMPH# 1.82 X1000 (1.2-3.4); LYMPH% 29.9 % (20.5-51.1); MCHC 34.4 g/dL (33-37); MCV 95.8 FL (81-99); MONO# 0.63 X1000 (0.11-0.59); MONO% 10.4 % (1.7-9.3); MPV 9.5 FL (7.4-10.4); NEUT% 57.3 % (42.2-75.2); PLT 59 X1000 (130-400); RBC 3.58 XMIL (4.7-6.1)
[2017-03-14 05:51] LABS: AGAP 10; ALBUMIN 2.7 g/dL (3.5-5.0); ALKALINE PHOSPHATASE 90 U/L (32-122); BUN 8 mg/dL (8-22); CALCIUM 7.8 mg/dL (8.8-10.2); CHLORIDE 97 mmol/L (98-107); COSMO 276; GOT 19 U/L (10-34); GPT 6 U/L (10-44); POTASSIUM 3.2 mmol/L (3.5-5.1); SODIUM 137 mmol/L (136-145); TCO2 30 mmol/L (25-35); TOTAL BILIRUBIN 2.86 mg/dL (0.20-1.00); TOTAL PROTEIN 7.1 g/dL (6.3-8.3)
[2017-03-14] MEDS: PROTONIX IV SCH (06:08)
[2017-03-14] MEDS: SODIUM CHLORIDE 0.9% INJ SCH (06:08)
[2017-03-14] MEDS: CORGARD PO SCH (09:41)
[2017-03-14] MEDS: XIFAXAN PO SCH (09:41)
[2017-03-14] MEDS: BUMEX PO SCH (09:41)
[2017-03-14] MEDS: POTASSIUM CHLORIDE 20 MEQ/SWI 20 MEQ/100 ML IVPB IV SCH ×2 (09:42→13:55)
[2017-03-14] MEDS: XANAX PO SCH (09:42)
[2017-03-14] MEDS: FOLIC ACID PO SCH (09:42)
[2017-03-14] MEDS: LACTULOSE PO SCH ×2 (09:42→13:55)
[2017-03-14] MEDS: ULTRAM PO PRN (10:01)
[2017-03-14] MEDS: ZOFRAN IV PRN (10:16)
[2017-03-14 13:39] VITALS: BP 107/70
--- NOTE | 2017-03-14 15:13 | DISCHARGE SUMMARY ---
ADMISSION DATE: 03/11/2017 DISCHARGE DATE: 03/14/2017 DISPOSITION: [facility]. CONSULTATION DURING THIS ADMISSION: 1. Orthopedics was consulted. Patient was seen by Erwin Leon. 2. Gastroenterology was consulted. Patient was seen by Norma Mosher MD. INVASIVE PROCEDURES DONE DURING ADMISSION: EGD was done by Dr. Mosher. Impression was grade 4 esophageal varices, hiatal hernia, large gastric ulcers, erosive gastritis and polyps. FOLLOWUP: 1. Medical staff at the rehab center. 2. Dr. Leon. 3. Dr. Mosher. ADMISSION DIAGNOSES: 1. Fall with right medial femoral epicondylar fracture. 2. Hepatic encephalopathy. 3. COPD. 4. Congestive heart failure. 5. History of coronary artery disease. DISCHARGE DIAGNOSES: 1. Fracture of the right medial femoral epicondyle status post fall. The patient was evaluated by Orthopedics and was recommended to be nonsurgical. 2. Metabolic encephalopathy, likely multifactorial etiology, including hepatic encephalopathy and also hypoxemic/CO2 narcosis. 3. Suspected hypoventilation syndrome and sleep apnea. 4. Chronic thrombocytopenia secondary to cirrhosis. 5. Cirrhosis of the liver due to alcohol and fatty liver disease. 6. Vitamin D deficiencies. 7. History of gastric varices. 8. Suspect a common bile duct obstruction. The patient was advised to undergo endoscopic retrograde cholangiopancreatography, but he refused to do that. Of note, the patient AST and liver enzymes have been normal and also his bilirubin has been trending down. He has been advised to repeat LFTs in about a week to two. DISCHARGE MEDICATIONS: 1. Zetia 10 mg at bedtime. 2. Bumetanide 2 mg b.i.d. 3. Potassium 20 mg 3 times per day. 4. Nadolol 40 mg daily. 5. Nitroglycerin. 6. Xanax 1 mg 3 times per day. 7. Rifaximin 550 b.i.d. 8. Carafate 1 g p.o. q.6 hours. 9. Ergocalciferol 50,000 daily. 10. Pantoprazole 40 mg b.i.d. PRESENTING COMPLAINT: Fall. HISTORY OF PRESENT COMPLAINT: Mr. Rondon is a 66-year-old male with a history of cirrhosis, heart failure, COPD who accidentally fell at home hitting the right leg, came into the emergency department for evaluation. Upon evaluation, patient was found to have a fracture to the right medial epicondyle of the femur and was admitted for further medical care. HOSPITAL COURSE: Patient did pretty well, was evaluated by Orthopedics, Dr. Leon who recommended his fracture was nonsurgical and orthopedic braces were put on the knee. Patient tolerated and did physical therapy multiple times here in the hospital. The patient also did have a CT scan which did suggest some distal esophageal obstruction and also hepatic encephalopathy, so Gastroenterology was consulted. Patient was seen by Dr. Mosher. EGD was done. The findings are in the chart. Recommendations were to continue with the PPI b.i.d. and Carafate was added. Because of the bilirubin being a little bit high, there was a recommendation to do an ERCP; however, patient declined to do that. Of note, his bilirubin has also been trending down. Today he refers to be doing fine. He just complained of some pain in the knee, but we think patient is stable enough to be discharged to the rehab to continue physical rehabilitation. At the time of discharge, there were no pending labs or imaging studies. TIME SPENT ON DISCHARGE: 37 minutes. cc: Song Peters MD
[2017-03-14] MEDS ORDERED: PROTONIX PO SCH (21:00)
--- NOTE | 2017-03-15 08:32 | PROGRESS NOTE ---
DATE: 03/13/2017 SUBJECTIVE: The patient states that his stomach feels better. He is requesting morphine for pain control relative to his right knee fracture. He denies abdominal pain following his endoscopy. However, he notes a sore throat. On ultrasound, he has a common bile duct stone. We have consulted Emerson Nava MD to perform an ERCP. I discussed this with the patient who said that he was going to think about whether not he wanted it done because he was admitted for his right knee pain, not for management of his liver disease, or the common bile duct stone. On endoscopy, he was noted to have large varices, gastroenteritis and duodenitis. Please see the endoscopy report for additional details. Additional recommendations to follow based on his clinical course. From a GI perspective, once the patient has the ERCP, he will be stable for discharge. He is doing well post EGD. His only complaint is that he has a sore throat. On endoscopy, he was found to have grade 4 varices, hiatal hernia, large gastric ulcer in the cardia, erosive gastritis, multiple erosions in the stomach, a mid gastric body ulcer, 3 antral polyps, portal gastropathy, and mild duodenitis. On ultrasound, he also has a common bile duct stone with rising liver function tests on serum chemistries. He is scheduled to undergo ERCP in the morning by Dr. Emerson Nava. RECOMMENDATIONS: 1. The patient states that he does not want anything but morphine for pain control. Therefore, I recommend continuing Protonix orally twice a day for 6 weeks and then once a day. Continue Carafate 1 g p.o. 4 times a day for 12 weeks and then stop. 2. I would increase his nadolol to 40 mg 1 p.o. daily. 3. I would continue the Xifaxan and lactulose for management of his hepatic encephalopathy. 4. Once he has his ERCP, he is stable for discharge from a GI perspective. 5. I have recommended that the patient discuss his pain management with the primary service. 6. He should be re-evaluated in 4 weeks by his primary physician and follow-up with us as needed. cc: Norma Mosher MD [facility]AKES HEALTH SYSTEMRadha
== END 2017-03-14 16:08 ==
LOC: ED 09:07 → SUATTDRO 16:56 → 4N 16:56
PROVIDERS: ATTEND Internal Medicine

== ENCOUNTER 2020-01-23 23:00 | Inpatient (IN) ==
[2020-01-23] MEDS ORDERED: NS 1,000 ML IV ONE (23:07)
[2020-01-23] MEDS ORDERED: ATIVAN IV ONE ×2 (23:10→23:41)
[2020-01-23] MEDS ORDERED: KEPPRA 1,500 MG in NS 100 ML IV STA (23:10)
[2020-01-23 23:57] LABS: ALLEN TEST YES; BE -16.9 mmoll (-3.0-3.0); BLOOD TYPE ARTERIAL; HCO3-(ACT) 11.7 mmoll (20.0-26.0); METHB 0.9 % (0.0-1.5); O2(CT) 19.3 mL/dL (15.0-23.0); O2HB 95.2 % (95.0-99.0); PCO2(98.6) 37 mmHg (35-45); PO2(98.6) 120 mmHg (60-100); SAMPLE BLOOD; SAO2 99.2 % (95.0-100.0); THB 14.3 g/dL (11.5-17.4)
[2020-01-24] LABS: pH(98.6) 7.11 (7.35-7.45)
[2020-01-24 00:01] LABS: MODALITY CANNULA
[2020-01-24] MEDS ORDERED: NS 1,000 ML IV ONE (00:01)
[2020-01-24] MEDS ORDERED: SODIUM BICARBONATE 8.4% IV ONE (00:04)
[2020-01-24 00:15] LABS: BASO# 0.12 X1000 (0.0-0.2); BASO% 0.9 % (0.0-0.8); EOS# 0.31 X1000 (0.0-0.7); EOS% 2.3 % (0.0-10.0); HEMATOCRIT 43.3 % (42.0-52.0); HEMOGLOBIN 13.6 g/dL (14.0-18.0); IMM GRAN# 0.02 X1000 (0.0-0.04); IMM GRAN% 0.1 % (0.0-0.5); LYMPH# 4.86 X1000 (1.2-3.4); LYMPH% 36.3 % (20.5-51.1); MCH 26.9 PG (27-31); MCHC 31.4 g/dL (33-37); MCV 85.7 FL (81-99); MONO# 1.37 X1000 (0.11-0.59); MONO% 10.2 % (1.7-9.3); MPV 10.8 FL (7.4-10.4); NEUT# 6.71 X1000 (1.4-6.5); NEUT% 50.2 % (42.2-75.2); PLT 147 X1000 (130-400); RBC 5.05 XMIL (4.7-6.1); RDW 16.2 % (11.5-14.5); WBC 13.39 X1000 (4.8-10.8)
[2020-01-24 00:23] LABS: URINE SOURCE CATH
[2020-01-24 00:25] LABS: INR 1.33; PROTIME 16.7 Seconds (11.0-16.0)
[2020-01-24 00:26] LABS: PTT 33.6 Seconds (22.3-41.8)
[2020-01-24 00:37] LABS: ESTIMATED GFR > 60
[2020-01-24 00:39] LABS: BILIRUBIN URINE NEGATIVE (NEGATIVE); BLOOD URINE TRACE (NEGATIVE); COLOR YELLOW; GLUCOSE URINE NEGATIVE (NEGATIVE); KETONE URINE 10 mg/dL (NEGATIVE); LEUKOCYTES URINE NEGATIVE (NEGATIVE); NITRITE URINE NEGATIVE (NEGATIVE); PH URINE 6.5; PROTEIN URINE 300 mg/dL (NEGATIVE); SP GRAVITY URINE 1.016; TURBIDITY URINE CLEAR (CLEAR); UROBILINOGEN URINE NORMAL (NORMAL)
[2020-01-24 00:40] LABS: UR EPITHELIAL CELLS <10 /HPF (<10); URINE BACTERIA NEGATIVE /HPF; URINE RBC <10 /HPF (<10)
[2020-01-24 00:45] LABS: AGAP 26; ALB/GLOB RATIO 0.6; ALBUMIN 3.1 g/dL (3.5-5.0); ALKALINE PHOSPHATASE 101 U/L (32-122); BUN 6 mg/dL (8-22); CALCIUM 9.2 mg/dL (8.8-10.2); CHLORIDE 100 mmol/L (98-107); CK PROFILE 48 U/L (24-204); COSMO 279; CREATININE 1.1 mg/dL (0.7-1.2); GLUCOSE 170 mg/dL (70-104); GOT 50 U/L (10-34); GPT 27 U/L (10-44); POTASSIUM 3.9 mmol/L (3.5-5.1); SODIUM 139 mmol/L (136-145); TCO2 13 mmol/L (25-35); TOTAL BILIRUBIN 1.76 mg/dL (0.20-1.00)
[2020-01-24 00:45] LABS: UR AMPHETAMINES QUAL NONE DETECTED (NONE DETECT); UR BARBITUATES QUAL NONE DETECTED (NONE DETECT); UR BENZODIAZEPIN QUAL NONE DETECTED (NONE DETECT); UR CANNABINOIDS QUAL PRESUMPTIVE POSITIVE (NONE DETECT); UR COCAINE QUAL NONE DETECTED (NONE DETECT); UR METHADONE QUAL NONE DETECTED (NONE DETECT); UR OPIATES QUAL NONE DETECTED (NONE DETECT); UR OXYCODONE QUAL NONE DETECTED (NONE DETECT); UR PCP QUAL NONE DETECTED (NONE DETECT)
[2020-01-24 00:55] LABS: URINE CASTS NONE SEEN; URINE CRYSTALS NONE SEEN; URINE YEAST NONE SEEN
[2020-01-24] MEDS ORDERED: MERREM 1 GM in NS 50 ML IV ONE (01:04)
--- NOTE | 2020-01-24 01:05 | PROVIDER DOCUMENTATION ---
This chart was entered by Katie Jacobo Scribe, acting as scribe for Eamon Naik MD. HPI-General Adult - General Chief Complaint: Seizure Stated Complaint: fall Time Seen by Provider: 01/23/20 23:01 Source: family Allergies/Adverse Reactions: Patient Allergies Allergy/AdvReac Type Severity Reaction Status Date / Time cephalexin monohydrate * Allergy Unknown Verified 03/11/17 09:35 [From Keflex] Home Medications: Home Medication List Medication Instructions Recorded Confirmed Last Taken Type Alprazolam [Xanax] 1 mg PO TID 03/11/17 01/08/20 03/10/17 History Bumetanide [Bumex] 2 mg PO BID 03/11/17 01/08/20 03/10/17 History Ezetimibe [Zetia] 10 mg PO QHS 03/11/17 01/08/20 03/10/17 History Folic Acid 1 mg PO DAILY 03/11/17 01/08/20 03/10/17 History Nadolol 20 mg PO DAILY 03/11/17 01/08/20 03/10/17 History Nitroglycerin 0.4 mg SL PRN PRN 03/11/17 01/08/20 03/10/17 History Potassium 20 meq PO TID 03/11/17 01/08/20 03/10/17 History Ergocalciferol (Vitamin D2) 50,000 unit PO Q7D capsule 03/14/17 01/08/20 Unknown Rx [Vitamin D] Pantoprazole [Protonix] 40 mg PO BID tablet 03/14/17 01/08/20 Unknown Rx Rifaximin [Xifaxan] 550 mg PO BID tablet 03/14/17 01/08/20 Unknown Rx Sucralfate [Carafate Liquid] 1 gm PO Q6H udc 03/14/17 01/08/20 Unknown Rx Lactulose 30 ml PO Q8H #237 ml 01/15/20 Unknown Rx - History of Present Illness -Gen Adult Nature of Presenting Problems: pt is a 69 yr old male presenting via EMS from home post seizure/fall. EMS reports pt fell out of bed during seizure at home tonight, pt hx of seizure disorder, reports he had previously had seizures after stopping his retirement Xanax use. admits pt was discharged home from this facility today. Location of Pain/Injury: reports: face Pain Radiation: reports: no radiation Severity: reports: mild Onset/Duration: reports: this evening Timing: reports: still present Context/Activities at Onset: reports: recent trauma history (fall out of bed) Modifying Factors: improves with: nothing Associated Symptoms: reports: seizure. denies: fever/chills Similar Symptoms Previously?: Yes Recently seen or treated by another doctor?: Yes Review of Systems - Adult - REVIEW OF SYSTEMS - ADULT Constitutional: denies: chills, fever Eyes: reports: no symptoms reported Ears, Nose, Mouth & Throat: reports: no symptoms reported Cardiovascular: reports: no symptoms reported Respiratory: reports: no symptoms reported Gastrointestinal: reports: no symptoms reported Genitourinary: reports: no symptoms reported Musculoskeletal: reports: no symptoms reported Integumentary: reports: no symptoms reported Neurological: reports: seizure Psychiatric: reports: no symptoms reported Endocrine: reports: no symptoms reported Hematologic/Lymphatic: reports: no symptoms reported Allergic/Immunologic: reports: no symptoms reported All Other Systems: Reviewed and Negative Past History - Adult - PAST MEDICAL HISTORY-ADULT Review of Records: reports: Old Records Reviewed, Nursing Assessment Review, Medications Reviewed, Social history reviewed & non-contributory. Major Childhood Illnesses: reports: denies history Cardiovascular: reports: blood clots, CAD, CHF, HTN, hyperlipidemia, [place] (x3), PAD, PVD Respiratory: reports: asthma, COPD Gastrointestinal: reports: GERD, liver disease (cirrhosis), other (splenomegaly) Obstetrical/Gynecological: reports: denies history Genitourinary: reports: denies history, kidney disease Musculoskeletal: reports: chronic pain, other fractures, orthopedic injury, other (necrosis in R hip and R knee) Neurological: reports: denies history, cognitive dysfunction (baseline confusion), CVA Endocrine/Immune: reports: denies history, Diabetes Other Conditions: reports: denies history - PRIOR SURGERIES/PROCEDURES Surgical/Procedure History: reports: cardiac stent, orthopedic (extremity) (R hip; R knee) - IMMUNIZATION STATUS Childhood Immunizations: See Nurse Assessment Flu Vaccine: See Nurse Assessment - FAMILY HISTORY Family History: reviewed, not pertinent - SOCIAL HISTORY Substance Use: alcohol Living Situation: family Physical Exam-General - PHYSICAL EXAM-ADULT Initial Vital Signs Reviewed: Yes - CONSTITUTIONAL General Appearance: no apparent distress - EYES Eyes: PERRL/EOMI - HEAD, EARS, NOSE, MOUTH & THROAT HENMT: moist mucous membranes, other (abrasions and hematoma to forehead and nose) - NECK Neck: non-tender, full range of motion, supple, normal inspection - RESPIRATORY Respiratory: chest non-tender, no respiratory distress, no accessory muscle use, rhonchi (diffuse) - CARDIOVASCULAR Cardiovascular: normal peripheral pulses, regular rate, rhythm - GASTROINTESTINAL (ABDOMEN) Abdominal Exam: normal bowel sounds, non tender, soft - LYMPHATIC Lymphatic: no adenopathy - MUSCULOSKELETAL Back Exam: normal inspection Extremity: normal range of motion, non-tender, other (spooning of fingernails) - SKIN Integumentary: normal color, normal turgor, warm/dry Progress - PLAN OF CARE/RESULTS Progress/Plan/Lab Results: Vital Signs - 8 hr 01/23/20 23:17 Temperature 96.7 F L Pulse Rate 80 Respiratory Rate 16 Blood Pressure 110/73 O2 Sat by Pulse Oximetry 98 Orders Category Date Time Status Cardiac Monitoring DIRECTED Care 01/23/20 23:06 Active Finger Stick Blood Sugar (ED) DIRECTED Care 01/23/20 23:06 Active Oxygen Therapy- ED Nursing DIRECTED Care 01/23/20 23:06 Active Saline Loc NOW Care 01/23/20 23:06 Active CHEST-PORTABLE [RAD] Stat Exams 01/23/20 23:[address] HEAD/C-SPINE W/O CONTRAST [CT] Stat Exams 01/23/20 23:[address] MAXILLOFACIAL(SINUS) W/O CO [CT] Stat Exams 01/23/20 23:07 Ordered ABG [RESP] Routine Lab 01/23/20 23:06 Ordered ALCOHOL BLOOD Stat Lab 01/23/20 23:06 Uncollected AMMONIA [CHEM] Stat Lab 01/23/20 23:09 Uncollected CBC WITH ELECTRONIC DIFF [HEME] Stat Lab 01/23/20 23:06 Uncollected CK PROFILE [SP CHEM] Stat Lab 01/23/20 23:06 Uncollected COMPREHENSIVE METABOLIC PANEL [CHEM] Stat Lab 01/23/20 23:06 Uncollected LACTATE, PLASMA [CHEM] Stat Lab 01/23/20 23:06 Uncollected PROTIME WITH INR [COAG] Stat Lab 01/23/20 23:06 Uncollected PTT [COAG] Stat Lab 01/23/20 23:06 Uncollected TROPONIN T HIGH SENSITIVITY Stat Lab 01/23/20 23:06 Uncollected UA NIMS W/REFLEX CULT [URINALYSIS] Stat Lab 01/23/20 23:06 Uncollected URINE DRUG SCREEN Stat Lab 01/23/20 23:06 Uncollected 0.9% Sodium Chloride Inj [Ns] 1,000 ml Med 01/23/20 23:07 Active IV 999 mls/hr Levetiracetam [Keppra] 1,500 mg Med 01/23/20 23:10 Active 0.9% Sodium Chloride Inj [Ns] 100 ml IV ONCE Lorazepam [Ativan] Med 01/23/20 23:10 Discontinued 1 mg IV NOW ONE Altered Mental Status Stat Oth 01/23/20 23:06 Ordered EKG [EKG] Stat Ther 01/23/20 23:06 Ordered Result Diagrams: 01/23/20 23:55 01/23/20 23:55 - REASSESSMENT Reassessment #1 Time Reassessed: 23:40 Status: unchanged (Patient had generalized tonic clonic seizure in ED lasting approximately 1-2 minutes.) Reassessment #2 Time Reassessed: 01:01 Status: improving (seizures stopped after IV ativan 2mg and Keppra 1500mg. LIkely is BZD withdrawal seizure. Significant metabolic acidosis treated with IVF boluses and sodium bicarb) Reassessment Comment: given also MERREM IV for UTI - XRAY 1 XRAY Study: Chest Impression: See EMR Report - CT/MRI 1 CT Study: Cervical Spine, Head Impression: Normal, See EMR Report 2 CT Study: other (maxilofacial) Impression: See EMR Report - CONSULTS/PCP/HOSPITALIST Notification #1 *Consult/PCP/Hospitalist*: Dr Guerrero Time Discussed: 00:55 Reason/Comments: discussed plan of care for pt admit Consult Disposition: Admit Departure - Departure Date of Disposition Decision: 01/24/20 Time of Disposition Decision: 01:02 DIAGNOSIS: Tonic-clonic seizures, Metabolic acidosis with respiratory acidosis, Tobacco use disorder, UTI (urinary tract infection), bacterial Benzodiazepine withdrawal Qualifiers: Complication of substance-induced condition: with unspecified complication Qualified Code(s): F13.239 - Sedative, hypnotic or anxiolytic dependence with withdrawal, unspecified Disposition: ADMITTED INPATIENT 09 Certified Medical Emergency: Emergent Condition: Stable - Critical Care Note This patient required my direct & personal management of CC.: Yes Total Time (mins): 40 Critical Care Statement: This patient required my direct personal management to treat or rule out processes, the absence of which, could potentiallly result in sudden, clinically significant life or limb threatening deterioration. Attestation - Physician/ LUCI Attestation Patient care was provided by Advanced Practice Provider:: No The physician spent face to face time with patient:: Yes Advanced Practice Provider documentation review:: Supervising physician onsite and consulted in the evaluation and care of this patient. The physician did have a face to face encounter with the patient. This chart was documented by the indicated scribe, (Katie Jacobo, Evin) and accurately reflects the services I performed and decisions made by me, Eamon Naik MD, as attested by the provider's signature.
[2020-01-24] MEDS ORDERED: ATIVAN IV ONE (01:29)
--- NOTE | 2020-01-24 03:47 | HISTORY AND PHYSICAL ---
PRIMARY CARE PROVIDER: Unknown. CHIEF COMPLAINT: Altered mental status, seizures. HISTORY OF PRESENTING ILLNESS: A 69-year-old male with a history of alcoholic cirrhosis, esophageal varices, COPD, CHF, coronary disease who was just discharged earlier yesterday, who had presented to emergency department by EMS after he fell off the bed and was having seizures. As per ER records, the patient had been on long-term Xanax, however, somehow it was discontinued. He developed seizure-like activity in the ED. He was given Ativan and also started on Keppra. He remains postictal at time of my examination, and most of the history is obtained from previous records and ER charting, as there was no family around also. PAST MEDICAL HISTORY: Includes alcoholic cirrhosis, esophageal varices, COPD, CHF, coronary artery disease. PAST SURGICAL HISTORY: Appendectomy, coronary stent. ALLERGIES: Cephalexin. MEDICATIONS INCLUDE: Xanax 1 mg p.o. t.i.d., folic acid 1 mg p.o. daily, lactulose 30 mL p.o. q.8 hours, nadolol 20 mg p.o. daily, nitroglycerin 0.4 mg sublingual p.r.n., ranitidine 150 mg p.o. b.i.d., Xifaxan 550 mg p.o. b.i.d., tramadol 100 mg 4 times a day. SOCIAL HISTORY: He is a former smoker. Previous history of alcohol abuse. Admits history of marijuana use in the past. FAMILY HISTORY: No history of coronary disease. REVIEW OF SYSTEM: Unable to obtain due to patient being altered. PHYSICAL EXAMINATION: GENERAL: The patient is moderately altered and remains postictal now. VITAL SIGNS: Temperature 96.7 degrees, pulse 105, respirations 20, blood pressure 150/79. HEENT: Atraumatic, normocephalic. NECK: No masses. CHEST: Rhonchi. CARDIOVASCULAR: Regular rate and rhythm. ABDOMEN: Soft, positive bowel sounds. EXTREMITIES: Trace edema. NEUROLOGIC: The patient is altered, however, he is are arousable to tactile stimuli. GENITOURINARY: No bladder distention. SKIN: Warm. LABORATORIES AND STUDIES: WBC 13.39, hemoglobin 13.6, hematocrit 43.3, platelets 147,000. Blood gas showed pH of 7.11, pCO2 of 37, PO2 of 120. Sodium 139, potassium 3.9, chloride 100, CO2 is 13, BUN is 6, creatinine is 1.1. Glucose 170. Tox screen positive for cannabinoids. CT of the head is negative. ASSESSMENT: A 69-year-old male with a history of alcoholic cirrhosis, esophageal varices, chronic obstructive pulmonary disease, congestive heart failure, coronary artery disease who, apparently, was discharged from hospital yesterday, presented to emergency department by EMS after he was having seizures. Apparently, he was on long-term benzodiazepines. However, he was not on it for a while or so. At time of my examination, he is postictal and he will require admission for further management. 1. Altered mental status, multifactorial. 2. Seizures. 3. Hepatic encephalopathy. 4. Metabolic acidosis. 5. Cirrhosis. 6. Chronic obstructive pulmonary disease. PLAN: 1. We will admit patient to [facility]. 2. We will continue with neuro checks and put patient on seizure precautions. 3. We will continue with Keppra and Ativan p.r.n. seizures. 4. We will restart his lactulose once his neuro status improves. 5. We may need to use BiPAP if he has any respiratory distress. 6. Continue with DuoNebs. 7. We will put patient on DVT prophylaxis with SCD. 8. We will continue to follow and reassess, make further recommendation based on patient's clinical course. cc: Chris Guerrero MD
--- NOTE | 2020-01-24 03:56 | ED EKG INTERP ---
EKG Interpretation - EKG Time of EKG reading by physician:: 03:55 EKG Read and Signed by:: Eamon Naik EKG Interpretation (*Must complete 3 of following elements*): Abnormal Rate: 92 Rhythm: nsr [place]: normal QRS: other (PACs) IN Interval: normal ST Wave: non-specific ST changes Prior EKG Comparison: unchanged from prior Attestation - Physician/ LUCI Attestation Patient care was provided by Advanced Practice Provider:: No The physician spent face to face time with patient:: Yes Advanced Practice Provider documentation review:: Supervising physician onsite and consulted in the evaluation and care of this patient. The physician did have a face to face encounter with the patient.
[2020-01-24] MEDS ORDERED: NITROGLYCERIN SL PRN (04:44)
[2020-01-24] MEDS ORDERED: ATIVAN IV PRN ×2 (04:44→11:46)
[2020-01-24] MEDS ORDERED: ZOFRAN IV PRN (04:44)
--- NOTE | 2020-01-24 05:02 | EKG Report ---
Test Performed on : 01/24/2020 03:53:09 AM Test Reason : seizure Blood Pressure : / mmHG Vent. Rate : 092 BPM Atrial Rate : 277 BPM P-R Int : 000 ms QRS Dur : 084 ms QT Int : 410 ms P-R-T Axes : 000 055 027 degrees QTc Int : 507 ms Accelerated Junctional rhythm. with frequent and consecutive premature ventricular complexes. Septal infarct , age undetermined Inferior injury pattern Prolonged QT ACUTE [place] / STEMI Abnormal ECG When compared with ECG of 08-JAN-2020 23:36, (Unconfirmed) Junctional rhythm. has replaced Sinus rhythm. Unconfirmed Result
[2020-01-24] MEDS: CARAFATE LIQUID PO SCH ×5 (05:18→22:33)
[2020-01-24] MEDS: LACTULOSE PO SCH ×4 (05:19→20:59)
[2020-01-24] MEDS: DUONEB (A & A) INH SCH ×6 (05:54→23:29)
--- NOTE | 2020-01-24 08:32 | Diag Imaging Result Doc PS360 ---
EXAM: CHEST-PORTABLE INDICATION: seizure, ams TECHNIQUE: One view COMPARISON: 01/16/2020 FINDINGS: Likely previous studies, there are increased interstitial markings that are more prominent on the left. This is most consistent with pulmonary fibrosis, which can also be seen on a prior CT. No pleural fluid collection or pneumothorax is appreciated. No new consolidation is identified. The cardiomediastinal silhouette and central vasculature are grossly unremarkable. IMPRESSION: Stable fibrotic changes as described. No definite acute chest pathology by plain radiograph, otherwise. Electronically signed by Gaetano Bishop 01/24/2020 8:29 AM
--- NOTE | 2020-01-24 08:52 | Diag Imaging Result Doc PS360 ---
EXAM: CT HEAD/C-SPINE W/O CONTRAST INDICATION: head injury/pain TECHNIQUE: This exam was performed using automated exposure control, adjustment of mA or kV according to patient size, and/or use of iterative reconstruction technique. COMPARISON: Head CT dated 12/21/2018 FINDINGS: Head: There is stable diffuse brain atrophy. There is evidence of fairly advanced white matter microangiopathy, stable. There is no definite acute infarct given the limited sensitivity of CT versus MRI. There is no discrete intracranial mass, mass effect, or intracranial hemorrhage. There is a small stable right mastoid air cell effusion. Surrounding soft tissues and bony structures are essentially unremarkable, otherwise. The calvaria is intact. C-spine: There is multilevel degenerative disc disease and facet arthropathy. This is causing varying degrees of central canal stenosis and moderate to severe foraminal stenosis, probably most significant at C6-7 on the right. Otherwise, there is no discrete fracture, subluxation, or intrinsic osseous lesion. There is extensive atherosclerotic calcification at the carotid bulbs. There are emphysematous changes at the lung apices. Surrounding soft tissues are essentially unremarkable, otherwise. IMPRESSION: 1.Stable chronic changes but no evidence of acute intracranial pathology. 2.Multilevel degenerative arthropathy as described but no evidence of fracture or other definite acute C-spine injury. Electronically signed by Gaetano Bishop 01/24/2020 8:49 AM
--- NOTE | 2020-01-24 08:56 | Diag Imaging Result Doc PS360 ---
EXAM: CT MAXILLOFACIAL(SINUS) W/O CO INDICATION: fall, facial injury TECHNIQUE: COMPARISON: None. FINDINGS: There is no evidence of facial bone fracture. Specifically, the orbits, nasal bones, zygomatic arches, maxilla, mandible, and pterygoid plates are intact. The mandible is normally located. There is a small chronic right mastoid air cell effusion. There is minimal mucosal thickening at the floors of the frontal sinuses. The paranasal sinuses are clear, otherwise. The globes are intact. There is no retrobulbar hematoma. Surrounding soft tissues are essentially unremarkable by CT, otherwise. IMPRESSION: No evidence of facial bone fracture. Electronically signed by Gaetano Bishop 01/24/2020 8:54 AM
[2020-01-24] MEDS: XIFAXAN PO SCH ×2 (09:18→20:59)
[2020-01-24] MEDS: FOLIC ACID PO SCH (09:18)
[2020-01-24] MEDS: CORGARD PO SCH (09:18)
[2020-01-24] MEDS: XANAX PO SCH ×3 (09:22→20:59)
[2020-01-24] MEDS ORDERED: HALDOL IV PRN (11:45)
[2020-01-24] MEDS: KEPPRA 500 MG in NS 100 ML IV SCH (11:59)
--- NOTE | 2020-01-24 19:14 | PROGRESS NOTE ---
DATE: 01/24/2020 SUBJECTIVE: The patient has no major complaints. OBJECTIVE: Blood pressure 93/55, heart rate of 56, respiratory rate of 16, temperature 99.3 degrees, 98% on 3 L.Cardiovascular: Regular rate and rhythm. Pulmonary: Bilateral breath sounds, clear to auscultation. He seems more awake and alert, but he is still fairly confused. GI: Soft, nontender, nondistended. Bowel sounds are positive. He had numerous bruises over his face, but neurologically he seemed intact. His mental status seemed improved. ASSESSMENT AND PLAN: 1. Seizure disorder. He is on Keppra and seems to be doing okay. He has not had any further seizures. Apparently there was a concern because he was taken off his Xanax, and that may have induced a withdrawal seizure. 2. Hepatic encephalopathy. He does have a fairly high ammonia level. We will repeat it tomorrow. He is on rifaximin and he is on lactulose. 3. History of varices. Seems stable. He is on nadolol. 4. Disposition: He is wanting to go home, but I am not really sure how he has started to get up. We will continue treatment and follow. Anticipate discharge, hopefully in another 24 hours. cc: Blade Persaud MD
[2020-01-24 19:15] LABS: ALLEN TEST YES; BE 0.8 mmoll (-3.0-3.0); BLOOD TYPE ARTERIAL; HCO3-(ACT) 25.4 mmoll (20.0-26.0); METHB 1.3 % (0.0-1.5); O2(CT) 13.8 mL/dL (15.0-23.0); PCO2(98.6) 39 mmHg (35-45); PO2(98.6) 55 mmHg (60-100); SAMPLE BLOOD; SAO2 92.4 % (95.0-100.0); THB 11.1 g/dL (11.5-17.4); pH(98.6) 7.42 (7.35-7.45)
[2020-01-24 19:17] LABS: MODALITY CANNULA; O2HB 88.6 % (95.0-99.0)
[2020-01-24] MEDS: ZYVOX PO SCH (22:06)
[2020-01-25] MEDS: KEPPRA 500 MG in NS 100 ML IV SCH ×2 (00:02→12:38)
[2020-01-25] MEDS: DUONEB (A & A) INH SCH ×6 (04:54→23:21)
[2020-01-25 05:58] LABS: BASO# 0.02 X1000 (0.0-0.2); BASO% 0.4 % (0.0-0.8); EOS# 0.13 X1000 (0.0-0.7); EOS% 2.3 % (0.0-10.0); HEMATOCRIT 35.1 % (42.0-52.0); HEMOGLOBIN 10.7 g/dL (14.0-18.0); LYMPH# 2.39 X1000 (1.2-3.4); LYMPH% 42.6 % (20.5-51.1); MCH 26.6 PG (27-31); MCHC 30.5 g/dL (33-37); MCV 87.3 FL (81-99); MONO# 0.54 X1000 (0.11-0.59); MONO% 9.6 % (1.7-9.3); MPV 10.2 FL (7.4-10.4); NEUT# 2.53 X1000 (1.4-6.5); NEUT% 45.1 % (42.2-75.2); PLT 78 X1000 (130-400); RBC 4.02 XMIL (4.7-6.1); RDW 16.1 % (11.5-14.5); WBC 5.61 X1000 (4.8-10.8)
[2020-01-25 06:08] LABS: AGAP 10; BUN 9 mg/dL (8-22); CALCIUM 8.8 mg/dL (8.8-10.2); CHLORIDE 105 mmol/L (98-107); COSMO 274; ESTIMATED GFR > 60; GLUCOSE 92 mg/dL (70-104); SODIUM 138 mmol/L (136-145); TCO2 23 mmol/L (25-35)
[2020-01-25 06:12] LABS: ALB/GLOB RATIO 0.6; ALBUMIN 2.5 g/dL (3.5-5.0); DIRECT BILIRUBIN 0.5 mg/dL (0.00-0.20); TOTAL BILIRUBIN 1.44 mg/dL (0.20-1.00); TOTAL PROTEIN 6.7 g/dL (6.3-8.3)
[2020-01-25] MEDS: LACTULOSE PO SCH ×4 (06:16→21:02)
[2020-01-25] MEDS: CARAFATE LIQUID PO SCH ×4 (06:16→22:50)
[2020-01-25 07:07] LABS: EOS 2 % (1-10); LYMPHS 32 % (21-51); MONO 12 % (1-9); SEGS 54 % (42-75)
[2020-01-25] MEDS: CORGARD PO SCH (08:38)
[2020-01-25] MEDS: ZYVOX PO SCH ×2 (08:38→20:41)
[2020-01-25] MEDS: XANAX PO SCH ×3 (08:38→20:41)
[2020-01-25] MEDS: XIFAXAN PO SCH ×2 (08:38→20:41)
[2020-01-25] MEDS: FOLIC ACID PO SCH (08:38)
--- NOTE | 2020-01-25 17:22 | PROGRESS NOTE ---
DATE: 01/25/2020 SUBJECTIVE: Patient has no major complaints. OBJECTIVE: Vital signs: Blood pressure is 102/54, heart rate 54, respiratory rate 14, temperature 97.5 degrees, 100% on 3 L. Cardiovascular: Regular rate and rhythm. Pulmonary: Bilateral breath sounds. Clear to auscultation. GI: Soft, nontender, nondistended. Bowel sounds are positive. LABORATORY: White count 5, hemoglobin and hematocrit 10 and 35, platelets are down to 78,000, but I think those numbers are more consistent with his cirrhosis. Lactate is down to 2.9. PROBLEM LIST: 1. Seizure. He is on Keppra. I think I am going to put him back on just p.o. because he seems to be doing okay from that standpoint and controlled. 2. Hepatic encephalopathy. That seems to be stabilizing. His ammonia level which we are supposed to monitor that, but at least has come down to normal which is 54. He is on Xifaxan and lactulose. 3. Cirrhosis. Again, appears to be pretty much compensated. He is on nadolol. His hemoglobin and hematocrit have dropped a bit but there is no gross evidence of bleeding. His platelet count has dropped significantly too. 4. Elevated lactate. He is not clearly acidotic anymore. That seems to have resolved. His lactate did go up a little bit, but it had been 13 and 16 and then it came back down. So in any case, we are going to observe him a little bit today and see how he does. Clinically he looks okay. If stable, anticipate discharge hopefully tomorrow. Apparently, he is not very ambulatory or has much strength at this point. We will continue to monitor. cc: Blade Persaud MD
[2020-01-25 18:19] LABS: AGAP 8; ALB/GLOB RATIO 0.5; ALBUMIN 2.3 g/dL (3.5-5.0); ALKALINE PHOSPHATASE 77 U/L (32-122); BUN 8 mg/dL (8-22); CALCIUM 8.6 mg/dL (8.8-10.2); CHLORIDE 101 mmol/L (98-107); COSMO 266; CREATININE 1.1 mg/dL (0.7-1.2); ESTIMATED GFR > 60; GLUCOSE 128 mg/dL (70-104); GOT 38 U/L (10-34); GPT 20 U/L (10-44); SODIUM 133 mmol/L (136-145); TCO2 24 mmol/L (25-35); TOTAL BILIRUBIN 0.87 mg/dL (0.20-1.00); TOTAL PROTEIN 6.5 g/dL (6.3-8.3)
[2020-01-26] MEDS: DUONEB (A & A) INH SCH ×6 (03:41→23:20)
[2020-01-26] MEDS: CARAFATE LIQUID PO SCH ×5 (04:59→23:39)
[2020-01-26] MEDS: LACTULOSE PO SCH ×3 (04:59→23:39)
[2020-01-26 07:03] LABS: BASO# 0.03 X1000 (0.0-0.2); BASO% 0.7 % (0.0-0.8); EOS# 0.08 X1000 (0.0-0.7); EOS% 1.9 % (0.0-10.0); HEMATOCRIT 36.5 % (42.0-52.0); LYMPH% 38.1 % (20.5-51.1); MCH 26.1 PG (27-31); MCHC 30.1 g/dL (33-37); MCV 86.7 FL (81-99); MONO% 9.5 % (1.7-9.3); MPV 10.6 FL (7.4-10.4); NEUT# 2.09 X1000 (1.4-6.5); NEUT% 49.8 % (42.2-75.2); PLT 71 X1000 (130-400); RBC 4.21 XMIL (4.7-6.1); RDW 15.9 % (11.5-14.5)
[2020-01-26] MEDS: XANAX PO SCH ×3 (09:19→20:48)
[2020-01-26] MEDS: FOLIC ACID PO SCH (09:19)
[2020-01-26] MEDS: ZYVOX PO SCH ×2 (09:19→20:48)
[2020-01-26] MEDS: XIFAXAN PO SCH ×2 (09:19→20:48)
[2020-01-26] MEDS: CORGARD PO SCH (09:19)
--- NOTE | 2020-01-26 14:35 | PROGRESS NOTE ---
DATE: 01/26/2020 SUBJECTIVE: Patient has no major complaints. OBJECTIVE: Vital Signs: Blood pressure is 96/58, heart rate of 66, respiratory rate of 20, temperature 97.8 degrees, satting 100% on 3 L. Cardiovascular: Regular rate and rhythm. Pulmonary: Bilateral breath sounds diminished at the bases. GI: Soft, nontender, nondistended. Bowel sounds are positive. LABS: White count is 4, hemoglobin and hematocrit 11 and 36, platelets of 71,000. I do not have any new electrolytes today. He seems to be doing okay. PROBLEM LIST: 1. Hepatic encephalopathy. Seems to be a little bit more confused today, but he is still on lactulose. We will check his ammonia today and see how he does. He is on Xifaxan. 2. Seizure disorder. He is on Keppra and seems to be doing okay. 3. Cirrhosis, again appears to be relatively well compensated. 4. Anemia. Hemoglobin and hematocrit is stable. We will see how things go. He got initiated on Zyvox last night, and I am really not sure why. So, we will continue to follow closely. cc: Blade Persaud MD
[2020-01-27] MEDS: DUONEB (A & A) INH SCH ×4 (03:20→15:27)
[2020-01-27 05:29] LABS: BASO# 0.03 X1000 (0.0-0.2); BASO% 0.7 % (0.0-0.8); EOS# 0.09 X1000 (0.0-0.7); EOS% 2.2 % (0.0-10.0); HEMATOCRIT 35.6 % (42.0-52.0); HEMOGLOBIN 10.9 g/dL (14.0-18.0); LYMPH# 1.47 X1000 (1.2-3.4); LYMPH% 35.8 % (20.5-51.1); MCH 26.4 PG (27-31); MCHC 30.6 g/dL (33-37); MCV 86.2 FL (81-99); MONO# 0.48 X1000 (0.11-0.59); MONO% 11.7 % (1.7-9.3); MPV 10.8 FL (7.4-10.4); NEUT# 2.04 X1000 (1.4-6.5); NEUT% 49.6 % (42.2-75.2); PLT 66 X1000 (130-400); RBC 4.13 XMIL (4.7-6.1); RDW 15.5 % (11.5-14.5); WBC 4.11 X1000 (4.8-10.8)
[2020-01-27] MEDS: CARAFATE LIQUID PO SCH ×3 (05:38→17:09)
[2020-01-27] MEDS: LACTULOSE PO SCH ×2 (05:38→14:30)
[2020-01-27 05:49] LABS: AGAP 6; BUN 6 mg/dL (8-22); CALCIUM 8.6 mg/dL (8.8-10.2); CHLORIDE 104 mmol/L (98-107); COSMO 274; CREATININE 0.9 mg/dL (0.7-1.2); ESTIMATED GFR > 60; GLUCOSE 105 mg/dL (70-104); POTASSIUM 3.4 mmol/L (3.5-5.1); SODIUM 138 mmol/L (136-145); TCO2 28 mmol/L (25-35)
[2020-01-27] MEDS: XANAX PO SCH ×3 (10:50→20:02)
[2020-01-27] MEDS: ZYVOX PO SCH ×2 (10:50→20:02)
[2020-01-27] MEDS: FOLIC ACID PO SCH (10:50)
[2020-01-27] MEDS: CORGARD PO SCH (10:50)
[2020-01-27] MEDS: XIFAXAN PO SCH ×2 (10:50→20:02)
[2020-01-27 18:18] VITALS: BP 109/64
--- NOTE | 2020-01-27 19:02 | DISCHARGE SUMMARY ---
ADMISSION DATE: 01/24/2020 DISCHARGE DATE: DISCHARGE DIAGNOSES: 1. Hepatic encephalopathy. 2. Seizure disorder. 3. Cirrhosis, presumed alcoholic. 4. History of esophageal varices. HISTORY AND HOSPITAL COURSE: Briefly this is a patient who had he came in because of seizures. He had been on Xanax and it was discontinued, possibly a withdrawal seizure. He was admitted for treatment. He had no further seizures while he was here. Head CT and neck CT showed arthropathy but no fracture, no stroke, no hemorrhage, no facial bone fractures because he definitely had some injury to his face. He was maintained on lactulose and Xifaxan. His initial ammonia level was 150/150. He stabilized, had no further seizures. His initial lactate was extremely elevated at 16, but that was probably right after seizures. The day of discharge he is alert, oriented x4. No major complaints. Hemoglobin and hematocrit is stable. His ammonia level had come down to 46. DISCHARGE CONDITION: Stable. DISCHARGE MEDS: Folic acid 1 daily, nadolol 20 daily, nitroglycerin p.r.n., potassium 20 t.i.d., tramadol, Xanax 1 t.i.d., Zantac 150 b.i.d., sucralfate q.6 lactulose 30 q.8, vitamin D 50,000 units weekly, Xifaxan 550 b.i.d. He is to follow up with his PCP in 1 to 2 days. cc: Blade Persaud MD
== END 2020-01-27 21:00 | disposition home health service (06) | DRG 101 ==
LOC: ED 23:00 → SUATTDRO 01-24 04:19 → 2N 01-24 04:19 → 1N 01-26 17:51
PROVIDERS: ATTEND Internal Medicine